=== PATIENT | male | born 1990 | race Two or more races ===

== ENCOUNTER 2016-03-22 08:42 | Emergency (ER) | payer BC ==
[2016-03-22 08:53] VITALS: PULSE 74; TEMP 98.1; BMI 38.0
--- NOTE | 2016-03-22 09:06 | PDOC ---
History of Present Illness <Rylee Meyer - Last Filed: 03/22/16 09:59> <Martínez Villavicencio - Last Filed: 03/22/16 11:03> - General Chief Complaint: Chest Pain Stated Complaint: CHEST PAIN Time Seen by Provider: 03/22/16 08:58 - History of Present Illness Initial Comments: 03/22/16 09:49 The patient is a 25 year old male with no past medical hx who presents to the ED complaining of diffuse intermittent left chest pain for a few weeks. The patient describes the pain as a sharp sensation, nonradiating, and lasting for a few minutes at a time. He reports he was laying down in bed this morning when he felt the pain that was associated palpitations so he came to the ED for further evaluation. He notes for the past few days he has been experiencing tingling under his left arm. Pt states when he has the symptoms, he feels like he needs to take a deeper breath, denies any IVEY. The patient was seen here in the ED in the past for the same complaint and followed up with Cardiology. 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 Pt states he was going to the gym up until 1 month ago but stopped when he started having the discomfort - there was no relationship between him working out and the pain. The patient denies a family hx of cardiac problems.The patient denies diaphoresis, nausea, vomiting, hemoptysis, diarrhea, blood in stool, melena, fever/chills, cough. The patient denies leg swelling, hemoptysis, back pain Allergies: NKDA Social: Smokes marijuana, denies cocaine/stimulant use Surgical: None reported PCP: Dr. English (Rylee Meyer) Past History <Rylee Meyer - Last Filed: 03/22/16 09:59> - Immunization History Immunization Up to Date: Yes - Psycho/Social/Smoking Cessation Hx Anxiety: No Suicidal Ideation: No Smoking History: Former smoker Have you smoked in the past 12 months: No Number of Cigarettes Smoked Daily: 2 Information on smoking cessation initiated: No Hx Alcohol Use: No Drug/Substance Use Hx: Yes Substance Use Type: Marijuana <Martínez Villavicencio - Last Filed: 03/22/16 11:03> - Past Medical History Allergies/Adverse Reactions: Allergies Allergy/AdvReac Type Severity Reaction Status Date / Time No Known Allergies Allergy Verified 03/22/16 08:50 Home Medications: Ambulatory Orders NK [No Known Home Medication] 03/22/16 Review of Systems - Review of Systems Able to Perform ROS?: Yes <Rylee Meyer - Last Filed: 03/22/16 09:59> <Martínez Villavicencio - Last Filed: 03/22/16 11:03> - Review of Systems Comments:: 03/22/16 09:50 CONSTITUTIONAL: No reported: Fever, Chills, Diaphoresis, Generalized Weakness, Malaise, Loss of Appetite HEENT: No reported: Rhinorrhea, Nasal Congestion, Throat Pain, Throat Swelling, Difficulty Swallowing, Mouth Swelling, Ear Pain, Eye Pain, Visual Changes CARDIOVASCULAR: (+) Chest pain, palpitations. No reported: Syncope, Irregular Heart Rate, Lightheadedness, Peripheral Edema RESPIRATORY: No reported: Cough, SOB with Exertion, Orthopnea, Wheezing, Stridor, Hemoptysis GASTROINTESTINAL: No reported: Abdominal pain, Abdominal Distension, Nausea, Vomiting, Diarrhea, Constipation, Melena, Hematochezia GENITOURINARY: No reported: Dysuria, Frequency, Urgency, Hesitancy, Flank Pain, Genital Pain MUSCULOSKELETAL: No reported: Myalgia, Arthralgia, Joint Swelling, Back pain, Neck Pain SKIN: No reported: Rash, Itching, Pallor HEMATOLOGIC/IMMUNOLOGIC: No reported: Easy Bleeding, Easy Bruising, Lymphadenopathy, Frequent infections ENDOCRINE: No reported: Unexplained Weight Gain, Unexplained Weight Loss, Heat Intolerance , Cold Intolerance NEUROLOGIC: No reported: Headache, Focal Weakness, Paresthesias, Vertigo, Lightheadedness, Unsteady Gait, Seizure, Mental Status Changes, Incontinence PSYCHIATRIC: No reported: Anxiety, Depression (Rylee Meyer) *Physical Exam <SuzetteRylee barajas - Last Filed: 03/22/16 09:59> <Martínez Villavicencio - Last Filed: 03/22/16 11:03> - Vital Signs Last Vital Signs Temp Pulse Resp BP Pulse Ox 98.1 F 74 20 137/67 96 03/22/16 08:50 03/22/16 08:50 03/22/16 08:50 03/22/16 08:50 03/22/16 08:50 - Physical Exam Comments: 03/22/16 09:50 GENERAL: The patient is awake, alert, and fully oriented, Nontoxic - in no acute distress. HEAD: Normocephalic, atraumatic. EYES: extraocular movements intact, sclera anicteric, conjunctiva clear. ENT: Normal voice, Moist mucous membranes. NECK: Normal range of motion, supple LUNGS: Breath sounds equal, clear to auscultation bilaterally. No wheezes, no rhonchi, no rales. HEART/CHEST: Regular rate and rhythm, without murmur, rub or gallop, reporducible tenderness on palpation to L chest ABDOMEN: Soft, nontender, normoactive bowel sounds. No guarding, no rebound.No CVA tenderness EXTREMITIES: Normal range of motion, no edema. No clubbing or cyanosis. No cords, erythema, or tenderness. NEUROLOGICAL: No facial asymmetry, Normal speech, PSYCH: Normal mood, normal affect. SKIN: Warm, Dry, normal turgor (Rylee Meyer) Heart Score/ECG Review <Rylee Meyer - Last Filed: 03/22/16 09:59> <Martínez Villavicencio - Last Filed: 03/22/16 11:03> - ECG Impressions Comment:: 03/22/16 09:34 Twelve-lead EKG was performed and reviewed by me. There is normal sinus rhythm with a normal rate. Rate of 79 Left axis deviation. The intervals are normal. There are no ST or T wave abnormalities. no significant change when compared with previous ekg from 02/07/2015 (Martínez Villavicencio ) ED Treatment Course - LABORATORY CBC & Chemistry Diagram: 03/22/16 09:25 03/22/16 09:25 <Rylee Meyre - Last Filed: 03/22/16 09:59> - LABORATORY CBC & Chemistry Diagram: 03/22/16 09:25 03/22/16 09:25 <Martínez Villavicencio - Last Filed: 03/22/16 11:03> - ADDITIONAL ORDERS Additional order review: Laboratory Results 03/22/16 09:25 Sodium 141 Potassium 4.1 Chloride 106 Carbon Dioxide 29 Anion Gap 6 L BUN 10 Creatinine 0.8 D Creat Clearance w eGFR > 60 Random Glucose 85 Calcium 8.9 Total Bilirubin 0.4 AST 25 D ALT 50 Alkaline Phosphatase 77 Total Protein 7.5 Albumin 4.2 TSH 1.58 03/22/16 09:25 RBC 5.44 MCV 86.1 MCHC 33.7 RDW 13.4 MPV 7.1 L Neutrophils % 62.2 Lymphocytes % 26.9 Monocytes % 5.7 Eosinophils % 4.4 D Basophils % 0.8 - RADIOLOGY Radiology Studies Ordered: Category Date Time Status CHEST PA & LAT [RAD] Stat Radiology 03/22/16 09:37 Completed Radiograph Interpretation: 03/22/16 09:59 Chest x ray, PA and Lateral Comparison: Prior chest x-ray dated 02/08/2015 The cardiac silhouette is within normal limits in size. The lung is clear. Mediastinum and visualized osseous structures appear grossly intact . Impression Unremarkable examination without evidence of acute lung disease. Reported By: Bruce Quinonez MD 03/22/16 0951 (Rylee Meyer) Medical Decision Making <Rylee Meyer - Last Filed: 03/22/16 09:59> <Martínez Villavicencio - Last Filed: 03/22/16 11:03> - Medical Decision Making 03/22/16 09:18 25y M no pmhx presents with chest pain that is sharp alsting several minutes at a time, today associated with palpitations. pain has no associated symptoms, is not exertional in nature. on exam the pt in no acute disterss with unremarkable exam. +reporoducible tenderness in L chest and pt endorses tingling in his armpit. pts ekg shows lvh, lad, no ST changes suggestive of ischemia will ck basic labs to r/o anemia, metabolic derangement, will reassess A portion of this note was documented by scribe services under my direction. I have reviewed the details of the note, within reason, and agree with the documentation with the following case summary and management plan written by me 03/22/16 11:01 labs reivewed unremarkble cxr negative pt feeling improved will d/c the pt to fu with his PMD return precautions were discussed I discussed the physical exam findings, ancillary test results and final diagnoses with the patient. I answered all of the patient's questions. The patient was satisfied with the care received and felt comfortable with the discharge plan and treatment plan. The patient will call their primary care physician within 24 hours to arrange follow-up and will return to the Emergency Department with any new, persistent or worsening symptoms. (Martínez Villavicencio) *DC/Admit/Observation/Transfer <Rylee Meyer - Last Filed: 03/22/16 09:59> - Discharge Dispostion Admit: No <Martínez Villavicencio - Last Filed: 03/22/16 11:03> Diagnosis at time of Disposition: Palpitations Chest pain Qualifiers: Chest pain type: unspecified Qualified Code(s): R07.9 - Chest pain, unspecified - Discharge Dispostion Disposition: HOME Condition at time of disposition: Improved - Referrals Referrals: Karan English MD [Staff Physician] - - Patient Instructions Printed Discharge Instructions: DI for Atypical Chest Pain Additional Instructions: Return to the emergency department immediately with ANY new, persistent or worsening symptoms. You MUST call and follow up with your doctor tomorrow for further evaluation of your symptoms. Results were discussed with you. Please make sure your doctor reviews the results of your emergency evaluation. If you had any xrays during your visit, it was read preliminarily by myself, a Radiologist will review it and if there are any additional findings we will call you. - Attestations Scribe Attestion: 03/22/16 09:49 Documentation prepared by Rylee Meyer, acting as medical billing coder for Martínez Villavicencio MD, /DO. (Rylee Meyer)
[2016-03-22 09:53] LABS: BASOPHIL 0.8 % (0-2.0); EOSINOPHIL 4.4 % (0-4.5); MCH 29.1 pg (25.7-33.7); MCHC 33.7 g/dl (32.0-35.9); MEAN CELL VOLUME 86.1 fl (80-96); MEAN PLT VOLUME 7.1 fl (7.5-11.1); NEUTROPHILS 62.2 % (42.8-82.8); PLATELET COUNT 290 K/MM3 (134-434); RDW 13.4 % (11.9-15.9); WHITE BLOOD COUNT 11.3 K/mm3 (4.0-10.0)
[2016-03-22 09:59] LABS: ALBUMIN 4.2 g/dl (3.4-5.0); ANION GAP 6 (8-16); BILIRUBIN,TOTAL 0.4 mg/dL (0.2-1.0); CALCIUM 8.9 mg/dL (8.5-10.1); CO2 29 mmol/L (21-32); CREATININE 0.8 mg/dL (0.7-1.3); GLUCOSE,RANDOM 85 mg/dL (74-106); SGOT/AST 25 U/L (15-37); SGPT/ALT 50 U/L (12-78); TOT PROT 7.5 g/dl (6.4-8.2)
[2016-03-22 10:07] LABS: ALK PHOS 77 U/L (45-117); THYROID STIMULATING HORMONE 1.58 uIU/ml (0.358-3.74)
[2016-03-22 11:11] VITALS: BP 122/78
--- NOTE | 2016-03-22 16:16 | EKG ---
Test Reason : Blood Pressure : / mmHG Vent. Rate : 079 BPM Atrial Rate : 079 BPM P-R Int : 148 ms QRS Dur : 094 ms QT Int : 350 ms P-R-T Axes : 031 -29 009 degrees QTc Int : 401 ms NORMAL SINUS RHYTHM VOLTAGE CRITERIA FOR LEFT VENTRICULAR HYPERTROPHY ABNORMAL ECG WHEN COMPARED WITH ECG OF 08-FEB-2015 20:14, NO SIGNIFICANT CHANGE WAS FOUND Confirmed by KATIANA ROSENBERG MD ([id number]) on 03/22/2016 4:15:47 PM Referred By: Confirmed By:KATIANA ROSENBERG MD
== END 2016-03-22 11:20 | disposition home or self-care (01) ==
LOC: JER 08:42
DX: R07.89 Other chest pain (principal)
CPT/HCPCS: 36415; 71020-TC; 80053; 84443; 85025; 93005; 93010; 99284-25

== ENCOUNTER 2016-09-01 23:53 | Emergency (ER) | payer BC ==
[2016-09-02 00:12] VITALS: BP 136/79; PULSE 85; TEMP 98.3; BMI 35.2
[2016-09-02] MEDS ORDERED: PANTOPRAZOLE 40 MG TABLET (FP) PO ONE (00:39)
--- NOTE | 2016-09-02 00:39 | PDOC ---
History of Present Illness - General History Source: Patient Exam Limitations: No Limitations - History of Present Illness Initial Comments: 09/02/16 00:42 The patient is a 26 year old male with no significant past medical history who presents to the ED for 2 days of chest pain with burping and eating. Patient describes pain as sharp, 10/10, lasting a couple of minutes each episodes with no exacerbating or alleviating factors. States his pain is midsternal and also has some back pain. He reports after eating solid food, he feels like his food is not going down. Denies abdominal pain, nausea, vomiting, or diarrhea. He tried chayo seltzer and tums with no improvement. He admits to eating a lot of spicy foods. Patient reports he was hospitalized for palpitations 2 years ago, where he was told that his symptoms were due to GERD and was prescribed zantac. States his symptoms are not similar with his GERD. Denies diaphoresis, lightheadedness, palpitations, SOB, jaw pain, shoulder pain, or arm pain. The patient denies fever, chills, or cough. Allergies: NKDA Social History: Current smoker. Marijuana use. Past Surgical History: None reported PCP: Dr. Karan English <Irma Malave - Last Filed: 09/02/16 01:08> - General History Source: Patient <JyotiHeavenlyHeri - Last Filed: 09/02/16 02:02> - General Chief Complaint: Chest Pain Stated Complaint: CHEST PAIN Time Seen by Provider: 09/02/16 00:18 Past History <Irma Malave - Last Filed: 09/02/16 01:08> - Immunization History Immunization Up to Date: Yes - Psycho/Social/Smoking Cessation Hx Anxiety: No Suicidal Ideation: No Smoking History: Current every day smoker Have you smoked in the past 12 months: No Number of Cigarettes Smoked Daily: 4 Information on smoking cessation initiated: No Hx Alcohol Use: No Drug/Substance Use Hx: No Substance Use Type: Marijuana <Heri Russell - Last Filed: 09/02/16 02:02> - Past Medical History Allergies/Adverse Reactions: Allergies Allergy/AdvReac Type Severity Reaction Status Date / Time No Known Allergies Allergy Verified 09/02/16 00:04 Home Medications: Ambulatory Orders Pantoprazole Sodium [Protonix] 40 mg PO DAILY #30 tablet. 09/02/16 Review of Systems - Review of Systems Able to Perform ROS?: Yes Comments:: 09/02/16 00:42 CONSTITUTIONAL: Absent: fever, no chills, no fatigue EYES: Absent: visual changes ENT: Absent: ear pain, no sore throat CARDIOVASCULAR: +chest pain Absent: no palpitations RESPIRATORY: Absent: cough, no SOB GI: Absent: abdominal pain, no nausea, no vomiting, no constipation, no diarrhea GENITOURINARY: Absent: dysuria, no frequency, no hematuria MUSCULOSKELETAL: +back pain Absent: no arthralgia, no myalgia SKIN: Absent: rash NEURO: Absent: headache <Irma Malave - Last Filed: 09/02/16 01:08> *Physical Exam - Vital Signs Last Vital Signs Temp Pulse Resp BP Pulse Ox 98.3 F 85 20 136/79 98 09/02/16 00:08 09/02/16 00:08 09/02/16 00:08 09/02/16 00:08 09/02/16 00:08 - Physical Exam Comments: 09/02/16 00:42 GENERAL: Well-appearing, well-nourished. No apparent distress. HEENT: Normocephalic, atraumatic. PERRL, EOM intact. CARDIOVASCULAR: Normal S1, S2. Regular rate and rhythm. PULMONARY: Clear to auscultation bilaterally. ABDOMEN: Soft, non-distended, non-tender. EXTREMITIES: Normal ROM in all four extremities. No gross deformities. SKIN: Warm, dry. No rash NEUROLOGICAL: No focal neurological deficits. <Irma Malave - Last Filed: 09/02/16 01:08> - Vital Signs Last Vital Signs Temp Pulse Resp BP Pulse Ox 98.3 F 85 20 136/79 98 09/02/16 00:08 09/02/16 00:08 09/02/16 00:08 09/02/16 00:08 09/02/16 00:08 <Heri Russell - Last Filed: 09/02/16 02:02> Heart Score/ECG Review - ECG Impressions Comment:: 09/02/16 01:08 NSR @85bpm L axis deviation Moderate voltage criteria for LVH, may be normal variant Abnormal ECG <Catracho Malaveta - Last Filed: 09/02/16 01:08> ED Treatment Course - LABORATORY CBC & Chemistry Diagram: 09/02/16 00:49 09/02/16 00:49 <AyshaalexTejalIrma - Last Filed: 09/02/16 01:08> - LABORATORY CBC & Chemistry Diagram: 09/02/16 00:49 09/02/16 00:49 <Heri Russell - Last Filed: 09/02/16 02:02> Medical Decision Making - Medical Decision Making 09/02/16 02:00 Dr. Russell: The scribe's documentation has been prepared under my direction and personally reviewed by me in its entirery. I confirm that the note above accurately reflects all work, treatment, procedures, and medical decision making performed by me. <Heri Russell - Last Filed: 09/02/16 02:02> *DC/Admit/Observation/Transfer - Attestations Scribe Attestion: 09/02/16 00:43 Documentation prepared by Irma Malave, acting as biomedical engineering supervisor for Heri Russell MD/. <AnandaIrma - Last Filed: 09/02/16 01:08> - Discharge Dispostion Admit: No <Heri Russell - Last Filed: 09/02/16 02:02> Diagnosis at time of Disposition: Chest pain Qualifiers: Chest pain type: unspecified Qualified Code(s): R07.9 - Chest pain, unspecified GERD (gastroesophageal reflux disease) Qualifiers: Esophagitis presence: esophagitis presence not specified Qualified Code(s): K21.9 - Gastro-esophageal reflux disease without esophagitis - Discharge Dispostion Disposition: HOME Condition at time of disposition: Stable - Referrals Referrals: Karan English MD [Primary Care Provider] - Jean Marie Denny DO [Staff Physician] - - Patient Instructions Printed Discharge Instructions: DI for Chest Pain, GERD Diet, DI for Gastroesophageal Reflux Disease (GERD) Additional Instructions: take medication as directed. Avoid excessive spicy food, greasy food, cigarette smoking or carbonated beverage. Follow-up with GI as needed
[2016-09-02] MEDS ORDERED: PANTOPRAZOLE 40 MG TABLET (FP) ONE (00:42)
[2016-09-02 00:57] LABS: BASOPHIL 0.6 % (0-2.0); MCH 28.7 pg (25.7-33.7); MCHC 33.6 g/dl (32.0-35.9); MEAN CELL VOLUME 85.3 fl (80-96); MEAN PLT VOLUME 6.9 fl (7.5-11.1); NEUTROPHILS 59.4 % (42.8-82.8); PLATELET COUNT 281 K/MM3 (134-434); RDW 13.5 % (11.9-15.9); WHITE BLOOD COUNT 14.3 K/mm3 (4.0-10.0)
[2016-09-02 01:25] LABS: ALBUMIN 3.8 g/dl (3.4-5.0); AMYLASE 55 U/L (25-115); ANION GAP 9 (8-16); BILIRUBIN,TOTAL 0.4 mg/dL (0.2-1.0); CALCIUM 8.6 mg/dL (8.5-10.1); CO2 30 mmol/L (21-32); GLUCOSE,RANDOM 90 mg/dL (74-106); MAGNESIUM 2.2 mg/dL (1.8-2.4); SGOT/AST 23 U/L (15-37); SGPT/ALT 50 U/L (12-78); TOT PROT 7.1 g/dl (6.4-8.2)
[2016-09-02 01:26] LABS: ALK PHOS 90 U/L (45-117); TROPONIN I < 0.02 ng/ml (0.00-0.05)
--- NOTE | 2016-09-02 17:09 | EKG ---
Test Reason : Blood Pressure : / mmHG Vent. Rate : 085 BPM Atrial Rate : 085 BPM P-R Int : 148 ms QRS Dur : 094 ms QT Int : 356 ms P-R-T Axes : 040 -30 028 degrees QTc Int : 423 ms NORMAL SINUS RHYTHM LEFT AXIS DEVIATION MODERATE VOLTAGE CRITERIA FOR LVH, MAY BE NORMAL VARIANT ABNORMAL ECG WHEN COMPARED WITH ECG OF 22-MAR-2016 08:45, NO SIGNIFICANT CHANGE WAS FOUND Confirmed by MD PEYTON, DANELLE ([id number]) on 09/02/2016 5:09:16 PM Referred By: Confirmed By:DANELLE TODD MD
== END 2016-09-02 02:02 | disposition home or self-care (01) ==
LOC: JER 23:53
DX: K21.9 Gastro-esophageal reflux disease without esophagitis (principal)
CPT/HCPCS: 36415; 80053; 82150; 82550; 82553; 83690; 83735; 84484; 85025; 93005; 93010; 99282-25

== ENCOUNTER 2023-06-26 23:43 | Emergency (ER) | payer BC ==
[2023-06-26 23:47] VITALS: BP 129/86; PULSE 70; RESP 20; TEMP 98.4; BMI 38.0
[2023-06-27] MEDS ORDERED: ASPIRIN 325 MG TABLET ONE (01:01)
[2023-06-27] MEDS: morphine CARPU-JECT 4 MG/1 ML DISP.SYRIN IVPUSH ONE (01:06)
[2023-06-27] MEDS: SODIUM CHLORIDE 0.9% 500 ML INFUS.BAG IV ONE (01:06)
[2023-06-27] MEDS: ASPIRIN 325 MG TABLET PO ONE (01:06)
[2023-06-27 01:13] LABS: HEMATOCRIT 42.7 % (35.4-49); HEMOGLOBIN 14.5 GM/dL (11.7-16.9); MCH 28.9 pg (25.7-33.7); MCHC 33.8 g/dl (32.0-35.9); MEAN CELL VOLUME 85.6 fl (80-96); MEAN PLT VOLUME 6.9 fl (7.5-11.1); PLATELET COUNT 275 10^3/uL (134-434); RBC 4.99 M/mm3 (4.00-5.60); RDW 14.2 % (11.9-15.9); WHITE BLOOD COUNT 11.4 K/mm3 (4.0-10.0)
[2023-06-27 01:50] LABS: POTASSIUM 3.4 mmol/L (3.5-5.1)
[2023-06-27 01:52] LABS: CALCIUM 8.3 mg/dL (8.5-10.1)
[2023-06-27 01:53] LABS: ALBUMIN 3.7 g/dl (3.4-5.0)
[2023-06-27 01:57] LABS: BILIRUBIN,TOTAL 0.3 mg/dL (0.2-1); TOT PROT 6.9 g/dl (6.4-8.2)
[2023-06-27 02:01] LABS: BLOOD UREA NITROGEN 9.5 mg/dL (7-18); CREATININE 0.9 mg/dL (0.55-1.3)
[2023-06-27] MEDS ORDERED: HEPARIN NA (PORCINE) 5,000 UNITS/ML 1ML VIAL IVPUSH PRN ×2 (02:08)
[2023-06-27] MEDS ORDERED: HEPARIN INFUSION - 25,000 UNITS/500 ML INFUS.BAG IVPB ONE (02:32)
[2023-06-27] MEDS ORDERED: POTASSIUM CHLORIDE TABS 20 MEQ TABLET.ER (FP) PO ONE ×2 (02:32→02:44)
[2023-06-27] MEDS: HEPARIN - 25,000 UNIT in SODIUM CHLORIDE 495 ML IV SCH (02:52)
[2023-06-27] MEDS: POTASSIUM CHLORIDE TABS 20 MEQ TABLET.ER (FP) PO ONE (02:52)
== END 2023-06-27 04:13 | disposition short-term general hospital (02) ==
LOC: JER 23:43
PROC: 3E033GC Introduction of Other Therapeutic Substance into Peripheral Vein, Percutaneous Approach (ICD-10-PCS; principal; 2023-06-27)
PROC: 3E033NZ Introduction of Analgesics, Hypnotics, Sedatives into Peripheral Vein, Percutaneous Approach (ICD-10-PCS; 2023-06-27)
DX: R07.89 Other chest pain (principal); R06.02 Shortness of breath; I21.4 Non-ST elevation (NSTEMI) myocardial infarction; R55 Syncope and collapse; Z20.822 Contact with and (suspected) exposure to COVID-19
CPT/HCPCS: 0241U-QW; 36415; 71046-TC-FY; 80053; 80061; 84484; 85027; 93005; 93010; 99285-25; J1644